=== PATIENT | female | born 1955 | race Two or more races ===

== ENCOUNTER 2017-07-30 02:59 | Emergency (ER) | payer MEDICAID ==
[~2017-07-30] VITALS: Ht 162.6 cm; Wt 94.3 kg
[2017-07-30 04:20] LABS: Basophils # (auto) 0 uL; Eosinophils # (auto) 0.1 uL; Nucleated Red Blood Cells % 0.1 %
[2017-07-30 04:22] LABS: Basophils % (auto) 0.4 % (0.0-2.0); Hematocrit 34.9 % (36.0-46.0); Hemoglobin 11.4 g/dL (12.2-16.2); Lymphocytes # (auto) 0.9 uL; Lymphocytes % (auto) 7.4 % (10.0-50.0); Mean Corpuscular Hemoglobin 26.8 pg (28.0-32.0); Mean Corpuscular Hgb Conc. 32.6 g/dL (32.0-36.0); Monocytes # (auto) 0.7 uL; Monocytes % (auto) 5.5 % (0.0-12.0); Neutrophils # (auto) 10.3 uL; Neutrophils % (auto) 85.7 % (37.0-80.0); Platelet Count (auto) 329 10^3/uL (140-450); Red Blood Cells 4.26 10^6/uL (4.0-5.20); Red Cell Distribution Width 15.9 % (11.8-14.3)
[2017-07-30 04:33] LABS: Albumin 2.8 g/dL (3.4-5.0); Anion Gap 9 (5-15); BUN/Creatinine Ratio 22.7; Blood Urea Nitrogen 17 mg/dL (7-18); Calcium 7.8 mg/dL (8.5-10.1); Carbon Dioxide 21 mmol/L (21-32); Chloride 106 mmol/L (98-107); GFR African American 101 mL/min; GFR Non-African American 83 mL/min; Glucose 221 mg/dL (74-106); Magnesium 2.1 mg/dL (1.6-2.6); Potassium 4.6 mmol/L (3.5-5.1); Sodium 136 mmol/L (136-145)
[2017-07-30 04:39] LABS: Alanine Aminotransferase 26 U/L (13-56); Alkaline Phosphatase 104 U/L (45-117); Aspartate Aminotransferase 20 U/L (15-37); Bilirubin, Total 0.2 mg/dL (0.2-1.0); Total Protein 6.8 g/dL (6.4-8.2)
[2017-07-30 04:45] LABS: INR 0.98 (0.9-1.15); Partial Thromboplastin Time 21.9 sec (22.64-33.71); Prothrombin Time 10.7 sec (9.37-12.3)
[2017-07-30] MEDS ORDERED: IOHEXOL 350 MG/ML 100ML IJ ONE (07:05)
[2017-07-30] MEDS ORDERED: METF-370 PO (09:01)
[2017-07-30] MEDS ORDERED: GLIP-116 PO (09:01)
[2017-07-30] MEDS ORDERED: glipiZIDE 5 MG TAB PO SCH (10:00)
[2017-07-30 12:30] VITALS: BP 121/66
== END 2017-07-30 12:47 | disposition short-term general hospital (02) ==
LOC: EDBD 02:59 → ER 03:19
DX: R55 Syncope and collapse (principal); E83.51 Hypocalcemia; R07.9 Chest pain, unspecified; R51 Headache; R79.1 Abnormal coagulation profile; R94.6 Abnormal results of thyroid function studies; E78.5 Hyperlipidemia, unspecified; I10 Essential (primary) hypertension
CPT/HCPCS: 36415; 70450; 71010; 71275; 80053; 82962; 83735; 84443; 84484; 85025; 85379; 85610; 85730; 93005; 94761; 99285; Q9967